=== PATIENT | female | born 1945 | race Caucasian/White ===

== ENCOUNTER 2020-07-30 16:08 | Inpatient (IN) | payer OTHER ==
[~2020-07-30] VITALS: Ht 157.5 cm; Wt 83.7 kg
--- NOTE | 2020-07-30 18:02 | NUR ---
PATIENT ADMITTING THIS DATE FROM [facility]. PATIENT WITH NEGATIVE COVID TESTING ON 07/29/20 AND 07/30/20 AFTER A POSITIVE TEST ON 07/27/20. DISCUSSED PATIENT ADMISSION TO REHAB UNIT WITH INFECTION CONTROL NURSE WHO APPROVED ADMISSION TO AFTER CLEARANCE OF DR. CAROLINA.
[2020-07-30 20:10] VITALS: BP 136/61
--- NOTE | 2020-07-31 01:43 | NUR ---
PT WAS DIRECTLY ADMITTED TO THIS UNIT REHAB (5N) ROOM 510 FROM [facility] AT APPROXIMATELY 1940. REPORT WAS TAKEN FROM NURSE DHAVAL. PT IS A&OX4. IS ON ROOM AIR. IS STABLE. CURRENTLY REPORTS PAIN IN THE LLE THAT IS BEING MANAGED WITH PAIN MEDS & OTHER THERAPEUTIC TECHNIQUES. PT DENIES PAIN IN R ANKLE. CAST INTACT & EXTREMITY ELEVATED. PT IS ABLE TO WIGGLE TOES. CAP REFILL <3 SEC. COLOR APPROPRIATE FOR ETHNICITY. NON WT BEARING ON THE RIGHT SIDE FOR 6 WEEKS. IS UP WITH MAX ASSIST X2, GB STAND PIVOT TO BSC & CHAIR. FALL PRECAUTIONS IMPLEMENTED. NO SKIN ISSUES NOTED. PT IS ABLE TO TURN SELF IN BED. PT WAS OREIENTED TO UNIT, ROOM, & CALL LIGHT SYSTEM. WELCOME PACKET GIVEN. CONSULTS CALLED. PT IS CURRENTLY ASLEEP IN BED. CALL LIGHT WITHIN REACH. PT IS CONTINENT & VOIDS PER BEDPAN FOR TONIGHT. DISCUSSED CONSENT FORMS WITH PT. PT STATED, "WOULD LIKE TO REST TONIGHT. I HAVEN'T GOTTEN MUCH SLEEP". PT TO SIGN ALL CONSENT FORMS IN AM INCLUDING FALL AGREEMENT. PT CALLS APPROPRIATELY FOR ASSISTANCE. WILL CONTINUE TO MONITOR.
[2020-07-31 04:31] LABS: HEMATOCRIT 36.7 % (37.0-47.0); HEMOGLOBIN 12.5 gm/dL (12.0-15.0); MCH 30.9 pg (26.0-34.0); MCHC 33.9 g/dL (28.0-37.0); MCV 91.1 fL (80.0-100.0); RBC 4.03 mil/uL (4.20-5.00); RDW 12.6 % (10.5-14.5); WBC 8.1 thou/uL (4.0-11.0)
[2020-07-31 04:56] LABS: ALBUMIN 2.8 g/dL (3.4-5.0); CALCIUM 8.4 mg/dL (8.5-10.1); CREATININE 0.6 mg/dL (0.6-1.0); POTASSIUM 3.4 mmol/L (3.5-5.1); TOTAL BILIRUBIN 1.6 mg/dL (0.2-1.0); TOTAL PROTEIN 6.3 g/dL (6.4-8.2)
[2020-07-31 05:15] LABS: FOLIC ACID 19.8 ng/mL (8.6-58.9)
[2020-07-31 07:15] VITALS: BP 165/77
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
--- NOTE | 2020-07-31 11:47 | NUR ---
cm tried to visit ronak in her room, unable to rt she working with ot.
[2020-07-31 20:00] VITALS: BP 154/77
[2020-08-01 00:06] LABS: GLYCOHEMOGLOBIN (HGB A1C) 9.4 % (4.8-5.6)
--- NOTE | 2020-08-01 02:48 | NUR ---
PT CARE ASSUMED WITH PT IN BED WITH FAMILY MEMBERS AT THE BEDSIDE.PT IS A/O X4.PT WANTED TO KNOW THE MEDICATIONS SHE IS TAKING.MEDS REVIEWD WITH FAMILY AND PT.PT IS ACCUCHECK ACHS WITH NO SSI.PT IS UP WITH X1 ASSIST.PT HAS A CAST ON THE RT FOOT.PT TAKES MEDS WHOLE WITH NO ISSUES.DTR WANTS TO KNOW RESULTS OF LABS TOMORROW.WILL ENDORSE TO DAY SHIFT TO CALL.WILL CONTINUE TO MONITOR
[2020-08-01 08:13] VITALS: BP 148/79
[2020-08-01 19:20] VITALS: BP 132/76
--- NOTE | 2020-08-01 19:48 | NUR ---
ASSUMED CARE AT 0700. A&OX4. REPORTS R ANKLE PAIN, RATED 7/10. PAIN MANAGED WITH PRN OXYCODONE. PATIENT CONTINUES TO BE NON-WEIGHT BEARING ON RLE, AND IS AN ASSIST OF 1 WITH GAITBEL AND WALKER USING WEIGHTBEARING LIMB FOR TRANSFERS AND AMBULATION. PATIENT C/O OF MUSCLE SPASM OVERNIGHT, AND PROVIDER ORDERED FOR MUSCLE RELAXER TO BE ADMINISTERED AT HS. PATIENT FAMILY CAME TO VISIT DURING DINNER. NON CONCERNS AT THIS TIME, WILL CONTINUE TO MONITOR.
--- NOTE | 2020-08-02 04:02 | NUR ---
assumed pt care at change of shift, asessments as charted, meds given as per may, pain medicine givenx1 for anle pain with relief, no acute distress noted, up to the commodex2, adequate clear ellen urine, denies dysuria, will continue to monitor and follow poc
[2020-08-02 05:44] LABS: CALCIUM 8.7 mg/dL (8.5-10.1); CREATININE 0.6 mg/dL (0.6-1.0); POTASSIUM 3.9 mmol/L (3.5-5.1)
[2020-08-02 08:00] VITALS: BP 141/73
--- NOTE | 2020-08-02 19:23 | NUR ---
ASSUMED CARE AT 0700. PATIENT IS A&OX4. REPORTS ACHING PAIN IN RIGHT ANKLE, MANAGED WITH PRN OXYCODONE. DIET ORDER HAS BEEN CHANGED TO CARB CONTROL, PER PROVIDER ORDER TO HELP MANAGE BG LEVELS. PT'S DAUGHTER CAME TO VISIT PATIENT AND WAS WONDERING IF HGBA1C LEVEL COULD BE TESTED ON HER MOTHER, BECAUSE SHE IS WONDERING IF HER MOTHER REQUIRES A DIABETES DIAGNOSIS. ONCOMING SHIFT HAS BEEN NOTIFIED TO PASS-ON TO FOLLOWING DAY SHIFT TO NOTIFY PROVIDERS ON THURSDAY 08/03. ASSIST OF 1 WITH GAITBELT AND WALKER W/ TRANSFERS AND AMBULATION. REMAINS NWB ON RLE. NO CONCERNS AT THIS TIME, WILL CONTINUE TO MONITOR.
[2020-08-02 20:18] VITALS: BP 140/69
--- NOTE | 2020-08-03 03:18 | NUR ---
PT TRANFERRING TO BEDSIDE COMMODE WITH GAIT BELT, WALKER AND ASSIST X1 AND IS TOLERATING FAIR. PERCOCET PROVIDING PAIN RELIEF. RESTING COMFORTABLY. NO NEEDS VOICED. CALL LIGHT WITHIN REACH. FREQUENT OBSERVATION.
[2020-08-03 08:00] VITALS: BP 150/71
--- NOTE | 2020-08-03 15:54 | NUR ---
Received awake on bed. Due medications given as prescribed, able to swallow meds w/o difficulty. On room air. Vital signs stable. On MS, not on telemetry; no complains and signs of chest pain, crushing sensation and heaviness. Assisted in ADLs. On carb controlled diet- tolerating well; no nausea, no vomiting and no abdominal pain noted. On blood sugar monitoring 2x/day- increased to ACHS as per BLOW OFF WORKER Ledy; with noted elevated blood sugar readings over the weekend. No IV noted. Continent of bowel and bladder, able to use bedside commode with moderate assist, gait belt and walker. Pt informed and aware re: non wt bearing status of R LE; s/p ORIF 07/28, dressing C/D/I. Complained of pain this AM, due PRN PO pain meds given as prescribed. To continue monitoring patient.
[2020-08-03 19:48] VITALS: BP 124/64
--- NOTE | 2020-08-04 02:39 | NUR ---
ASSUMED PT CARE AT 1900.PT WAS OSERVED SITTING UP BY HER BEDSIDE AT SHIFT CHANGE. PT UP WITH ASSIST/GB AND WALKER TO [facility]G CAST IN PLACE C/D/I.NON WT BEREAING TO HER R LEG.MEDS WHOLE IN THIN LIQUIDS.BG MONITORED WAS 183 AT HS.PT ABLE TO MAKE HER NEEDS KNOWN.CALL LIGHT WITHIN REACH.
[2020-08-04 08:19] VITALS: BP 128/69
--- NOTE | 2020-08-04 14:23 | NUR ---
team meeting recommendation: leslie, mario use knee scooter, she will need a wheel chair. will need assist with pills and bills. dc , 1 step, might want to have family look into ramp for at home.
[2020-08-04 19:22] VITALS: BP 142/76
--- NOTE | 2020-08-04 19:38 | NUR ---
ASSUMED CARE AT 0700. PATIENT IS A&OX4. NO C/O PAIN DURING THIS SHIFT. EDUCATION ON DIABETIC MEDICATION PROVIDED, SINCE PATIENT STARTED ON GLIPIZIDE TODAY.MEDICATION AND INSULIN ADMINISTERED ORDERED. CONTINUES TO BE NWB ON RLE, ASSIST OF 1 WITH MODERATE ASSIST USING GAITBELT AND WALKER FOR TRANSFERS. NO COCNERNS AT THIS TIME WILL CONTINUE TO MONITOR.
--- NOTE | 2020-08-05 01:49 | NUR ---
UP TO BSC WITH 1P ASSIST AND GAIT BELT FOR VOID AND BM. MAINTAINS NWB, PAIN AT HS, PAIN TOOK A WHILE TO GET UNDER CONTROL WITH PERCOCET TAKEN WITH SCHEDULED SOMA, MIGHT HAVE WORKED BETTER TO TAKE AN HOUR EARLIER. EXTRA BLANKETS NEEDED BECAUSE ROOM FEELS COLD TO HER WITH THERMOSTAT HIGH IT WILL GO. COLACE BUT NOT MIRALAX TONIGHT DUE TO SECOND BM TODAY, IT TOOK A WHILE TO FINALIZE DECISION.
--- NOTE | 2020-08-05 03:56 | NUR ---
MAINTAINING NWB RLE, PATIENT IS USING WC, GAIT BELT, AND 1P ASSIST USING GRAB BARS TO GET ON TOILET FOR VOIDS AND BM. TOOK A WHILE TO GET PAIN UNDER CONTROL TAKING PERCOCET WITH SCHEDULED SOMA, MIGHT HAVE WORKED BETTER IF TAKEN AN HOUR EARLIER. FOOT ELEVATED, ICE BAGS ARE NOT AN OPTION SHE FEELS COLD EVEN WITH EXTRA BLANKET AND THERMOSTAT TURNED UP. AFTER SECOND BM SHE HESITATED TO, BUT DECLINED MIRALAX, DID TAKE COLACE.
[2020-08-05 08:54] VITALS: BP 120/63
--- NOTE | 2020-08-05 13:43 | NUR ---
spoke with daughter fanta snow via phone call, agrees with dcp. they working on ramp at home should be done by monday. uncle going to bring her wheel chair. want to rent hospital bed, " ok that [facility] call on that information and i will assist her with medication and bills"/daughter fanta weaver. will cont following as needed for dc needs. cm left senior blue book and hh list choice with her.
[2020-08-05 19:19] VITALS: BP 127/72
--- NOTE | 2020-08-06 01:15 | NUR ---
PT ASSESSMENT COMPLETED AND VSS. MEDS GIVEN ORDERED AND WELL TOLERATED. FALL PRECAUTIONS IN PLACE. UP TO THE BATHROOM WITH ASST/GAIT/WHEELCHAIR. LOOSE STOOLS THIS EVENING. IMMODIUM HELPFUL. PRN PAIN MEDICATION WORKING WELL. DSG INTACT. SLEEPING WELL. WILL CONTINUE TO MONITOR FREQUENTLY.
[2020-08-06 19:10] VITALS: BP 141/75
--- NOTE | 2020-08-06 19:43 | NUR ---
ASSUMED CARE AT 0700. A&OX4. REPORTS R ANKLE PAIN, PAIN MANAGED WITH PRN OXYCODONE AND REST. MEDICATION AND INSULIN ADMINISTERED ORDERED. CONTINUES TO BE NON-WEIGHT BEARING ON RLE. CONTACT GUARD ASSIST WITH TRASNFERS. ABLE TO MAKE NEEDS KNOWN. NO CONCERNS AT THIS TIME, WILL CONTINUE TO MONITOR.
--- NOTE | 2020-08-06 22:06 | NUR ---
ASSUMED CARE OF PT AT 1920. PT IS A&OX4. IS STABLE. ON ROOM AIR. REPORTS PAIN IN RIGHT FOOT THAT IS BEING MANAGED WITH PAIN MEDS & OTHER THERAPUTIC TECHNIQUES. CAST IN PLACE. IS ABLE TO WIGGLE TOES. CAP REFILL LESS THAN 3 SEC. EDEMA & REDNESS NOTED. ELEVATED ON PILLOW. PT IS UP WITH 1 ASSIST, GB, WALKER STAND PIVOT & IS NON WEIGHT BEARING. FALL PRECAUTIONS & HOURLY ROUNDING CONTINUED THIS SHIFT. LABS & VITALS REVIEWED. CALL LIGHT WITHIN REACH. WILL CONTINUE TO MONITOR.
[2020-08-07 05:44] LABS: ABSOLUTE NEUTROPHILS 4.2 thou/uL (1.4-8.2); BASOPHILS 0.7 % (0.0-2.0); EOSINOPHILS 2.8 % (0.0-3.0); HEMATOCRIT 37.1 % (37.0-47.0); HEMOGLOBIN 12.4 gm/dL (12.0-15.0); LYMPHOCYTES 31.2 % (24.0-44.0); MCH 30.7 pg (26.0-34.0); MCHC 33.6 g/dL (28.0-37.0); MCV 91.3 fL (80.0-100.0); PLATELET COUNT 276 thou/uL (150-400); POLYS 58.3 % (36.0-66.0); RBC 4.06 mil/uL (4.20-5.00); RDW 13.1 % (10.5-14.5); WBC 7.2 thou/uL (4.0-11.0)
[2020-08-07 06:06] LABS: CALCIUM 9.1 mg/dL (8.5-10.1); CREATININE 0.6 mg/dL (0.6-1.0); MAGNESIUM 1.9 mg/dL (1.8-2.4); POTASSIUM 4.5 mmol/L (3.5-5.1)
[2020-08-07 08:00] VITALS: BP 108/65
--- NOTE | 2020-08-07 15:15 | NUR ---
Nutrition: pt admitted to rehab unit with right ankle fracture. Seen due to weekend LOS. Stable weights and good appetite reported, 75-100% of meals. New dx DM, A1C 9.4. BG 132-164. RD initiated diet review and gave materials to pt. Will followup next week prior to D/C for more comprehensive review of diet. Consider low nutrition risk.
--- NOTE | 2020-08-07 17:00 | PLAN ---
[facility] [place] [address] REHAB UNIT PLAN OF CARE Name: DIONICIO HALL Room #: 501-A ADM IN M.R.#: [id number] Admission: 07/30/20 Attend Phys: Alfredo Krishnamurthy MD Discharge: Date of : 49 Report #: [id number] THIS REPORT FOR: cc: CHENG - No family physician/PCP CHENG - No family physician/PCP Alfredo Krishnamurthy MD ~ DOC #: [id number] Alfredo Krishnamurthy MD DATE OF SERVICE: 08/01/2020 PROGRESS NOTE AND OVERALL PLAN OF CARE PLAN OF CARE: The patient was seen in rehabilitation medicine followup. She was in no distress. Temperature 36.7, pulse 70, respirations 17, and blood pressure 148/79. She has the splint involving the right foot, which appears to be neurovascularly intact. She is very talkative and somewhat tangential in her speech, but is pleasant, cooperative. She has been working in therapies with transfers at a max assist level and gait mod assist to 5 feet with a front-wheeled walker. Dressing upper body is set up with lower body mod assist. In speech, she does have moderate cognitive deficits, moderate memory deficits, [id number] comprehension deficits. She is limited to nonweightbearing right lower extremity. ASSESSMENT: 1. Right bimalleolar fracture status post open reduction internal fixation on 07/28/2020 nonweightbearing x6 weeks. 2. Peripheral neuropathy. 3. Vitamin B12 deficiency. 4. Vitamin D deficiency. 5. Probable type 2 diabetes mellitus. 6. Constipation. 7. Obesity. PLAN: The overall plan of care is based on the pre-admit screen and information garnered from therapy assessments. 1. Estimated length of stay is probably 14 days. 2. Medical prognosis reasonably good. 3. Anticipated interventions includes the interdisciplinary acute inpatient rehabilitation program. 4. Anticipated functional outcomes would be for the patient to become modified independent with basic mobility and ADLs probably at a walker versus wheelchair level. Also to improve as far as cognition. 5. Discharge destination will be back to the home setting with her daughter and son-in-law. They are noted to be installing a ramp. 6. Expected therapy by discipline includes PT, OT and speech 1 hour per day each five days a week throughout the duration of the acute inpatient rehabilitation stay. ADDENDUM: The patient's prognosis for significant practical improvement within [facility] [address] [place] [address] REHAB UNIT PLAN OF CARE Name: DIONICIO HALL Room #: 501-A [facility] IN [facility]#: [id number] Admission: 07/30/20 Attend Phys: Alfredo Krishnamurthy MD Discharge: Date of : 49 Report #: [id number] a reasonable period of time appears good. Given the patient's complex medical condition and risk of further medical complications, rehabilitation services could not be safely provided at a lower level of care such as a [facility] facility. Alfredo Krishnamurthy MD DGS :29 PM <ELECTRONICALLY SIGNED> By: Alfredo Krishnamurthy MD 08/07/20 1700 [id number] Alfredo Krishnamurthy MD /nt
[2020-08-07 20:00] VITALS: BP 129/71
--- NOTE | 2020-08-08 04:22 | NUR ---
assumed care approx 1900 evening 08/07. pt sitting up in w/c with right leg elevated at change of shift. pt alert and oriented x4, calm and cooperative. pt pleasant and cooperative. pt took hs meds with water tolerating well. pt appears to be sleeping soundly. bed alarm on and call light in reach. will continue to monitor.
[2020-08-08 07:01] VITALS: BP 143/65
--- NOTE | 2020-08-08 10:23 | NUR ---
ASSUMED CARE AT 0700. PATIENT IS ALERT AND ORINETED X4. PATIENT CAR'S, FINANCIAL REPORTING CONSULTANT ARE EQUAL. LUNGS ARE DEMINISHED. ABD IS SOFT WITH BSX4. UP TO THE BATHROOM WITH ASSIST OF 1 AND GAIT BELT TO VOID AND HAVE BM. RIGHT ANKLE SPLINT INTACT. PATIENT IS NON WT BEARING ON THE RIGHT ANKLE. UP IN W/C FOR MEALS. FALL AND SAFETY PROTOCOLS IN PLACE. C/O PAIN IN HER RIGHT ANKLE. MEDICATED WITH PRN PAIN MED. CONTINUES TO PROGRESS SLOWLY TOWARDS D/C GOALS. WILL CONTINUE TO MONITER.
[2020-08-08 19:20] VITALS: BP 133/71
[2020-08-09 19:09] VITALS: BP 150/83
--- NOTE | 2020-08-09 19:33 | NUR ---
ASSUMED CARE AT 0700. PATIENT IS A&OX4. NO C/O PAIN. BS PRESENT AND ACTIVE. MEDICATION AND INSULIN ADMNISTERED ORDERED. CONTINUES TO BE NON-WEIGHTBEARING ON RLE. SPLINT WRAPPED IN KERLIX IN PLACE ON RLE. ASSIT OF 1 WITH TRANSFERS USING WALKER AND GAITBELT. USES WHEELCHAIR MODE OF TRANSPORT. BLE KEPT ELEVATED, LOWER EXTREMITY EDEMA NOTED. NO CONCERS AT THIS TIME WILL CONTINUE TO MONITOR.
--- NOTE | 2020-08-09 22:56 | NUR ---
ASSUMED CARE OF PT AT 1915. A&OX4. IS ON ROOM AIR. IS STABLE. DENIES PAIN IN RIGHT FOOT. PARTIAL CAST IN PLACE. PT IS UP WITH 1 ASSIST, GB, WALKER. IS NON WT BEARING. EXTREMITY ELEVATED. EDEMA NOTED IN BILAT LES. PT IS ABLE TO WIGGLE TOES. CAP REFILL <3 SEC. COLOR APPROPRIATE. FALL PRECUATIONS & HOURLY ROUNDING CONTINUED THIS SHIFT. LABS & VITALS REVIEWED. PT IS CURRENTLY ASLEEP. CALL LIGHT WITHIN REACH. IS ABLE TO TURN SELF IN BED. WILL CONTINUE TO MONITOR.
[2020-08-10 07:15] VITALS: BP 135/74
--- NOTE | 2020-08-10 10:59 | NUR ---
ORTHOPEDIC APPOINTMENT WITH JOSE MIGUEL CLAUDIO SCHEDULED FOR 08/18/20 AT 1300, AT THE [facility] ([address] [place] [address]. , [id number]). PATIENT WILL RECEIVE A REMINDER CALL ABOUT APPOINTMENT.
--- NOTE | 2020-08-10 14:07 | NUR ---
cm delivered rx for wheel chair to [facility].
--- NOTE | 2020-08-10 16:45 | NUR ---
ASSUMED CARE AT 0700. PATIENT IS A&OX4. ABLE TO MAKE NEEDS KNOWN. ASSISST OF 1 USING GAITBELT AND WALKER TO TRANSFER TO TOILET. MEDICATION AND INSULIN ADMINISTERED ORDERED. REMAINS NWB ON RLE, SPLINTS RWPPED IN KERLIX IN PLACE AND INTACT. NO C/O PAIN. STOOL SOFTNER AND LAXITIVE WERE HELD THIS MORNING DUE TO REPORTS OF DIARREAH OVERNIGHT. NO CONCERNS AT THIS TIME, WILL CONTIUE TO MONITOR.
[2020-08-10 20:00] VITALS: BP 139/80
--- NOTE | 2020-08-11 04:48 | NUR ---
ASSESSMENT: PT REMAIN ALERT AND ORIENT TIMES THREE, FORGETFUL AT TIMES. VSS, AFEBRILE. SBA WITH GB AND WALKER TO BR. C/O RIGHT ANKLE PAIN, PRN PAIN MEDS GIVEN WITH GOOD RELIEF. SLOW PROGRESS TOWARDS DC GOALS. WILL CONTINUE TO MONITOR.
[2020-08-11 08:24] VITALS: BP 120/66
--- NOTE | 2020-08-11 09:34 | NUR ---
ADM TUMS TAB FOR UPSET STOMACH. PT STATING SHE IS HAVING ALOT OF GAS.
--- NOTE | 2020-08-11 09:54 | NUR ---
ASSISTED PT TO BATHROOM. PT ABLE TO WHEEL SELF IN BATHROOM AND GET UP TO TOILET. PT HAD BM THAT WAS SOFT. PT STATED SHE HAS SOME GURGALING TO STOMACH AND WANTED A TUMS. PT LUNGS CLEAR. PT DENIED ANY PAIN AT THIS TIME TO RT ANKLE. RT LOWER EXT IS WRAPPED IN KERLEX AND SECURED WITH TAPE. PT TOOK MEDS WITH THIN WATER.
--- NOTE | 2020-08-11 11:54 | NUR ---
ADM LOMOIL 2MG PO FOR COMPLAINTS OF SOFT STOOL X2 THIS AM.
--- NOTE | 2020-08-11 13:00 | NUR ---
team meeting, assist with medication and bills. dc on home with hh, wheel chair from [facility]. ortho follow up on . hh ( pt, ot, st, nursing). will cont following as needed for dc needs.
--- NOTE | 2020-08-11 14:16 | NUR ---
ADM OXYCODONE 5MG PO FOR PAIN TO RT ANKLE OF 6. PT TAKES MEDS ONE AT A TIME.
--- NOTE | 2020-08-11 17:29 | NUR ---
ADM TUMS FOR COMPLAINTS OF UPSET STOMACH PT ASKING FOR LOMOTIL.
--- NOTE | 2020-08-11 17:32 | NUR ---
ADM LOMOTIL 2MG PO FOR COMPLAINING OF UPSET STOMACH. PT STATED SHE DID HAVE ANOTHER STOOL.
[2020-08-11 19:39] VITALS: BP 116/66
--- NOTE | 2020-08-12 00:07 | NUR ---
ALERT AND ORIENTED X 4. UP IN W/C ALL EVENING. TRANSFERRED TO BED AT WITH ASSIST X 1. NWB RIGHT LE. SPLINT INTACT TO RLE. PT DENIES PAIN OR DISCOMFORT. BED ALARM ON FOR SAFETY. PT APPEARS TO BE SLEEPING ON HOURLY ROUNDS.
--- NOTE | 2020-08-12 08:33 | NUR ---
PT SITTING UP IN WHEEL CHAIR THIS AM. PT STATED SHE HAS SOME PAIN TO RT ANKLE OF 5 ON 1-10 SCALE. PT STATED HER GOAL WAS TO WORK WITH THERAPY. PT LUNGS CLEAR. PT HAD BM YESTERDAY.
--- NOTE | 2020-08-12 09:47 | NUR ---
spoke with daughter fanta jo via phone call, confirmed that she does not have pcp, any hh will be fine, ok with [facility] ( pt, ot, st,nurse). can try to see if dr cherri paul in [place] is taking new pt, she never goes to the "/fanta snow. referral to be sent to [facility], hospitalist will follow for home hh until see pcp.
--- NOTE | 2020-08-12 17:43 | NUR ---
ADM OXYCODONE 5MG PO FOR PAIN OF 8 TO RT ANKLE. PT STATED THAT ITS COLD IN ROOM AND SHE SAID PAIN IS STARTING. PT HAS LEG OFF FOOT OF W/C. WILL PLACE LEG BACK UP AND ELEVATE IT.
[2020-08-12 19:12] VITALS: BP 132/66
--- NOTE | 2020-08-13 02:04 | NUR ---
PT CARE ASSUMED WITH PT SITTING IN THE CHAIR .PT IS A/O X4.PT IS UP WITH X1 ASSIST AND NON WEIGHT BEARING ON RT FOOT WITH CAST IN PLACE.PT DENIED DOCUSATE THAT IT CAUSE HER TO HAVE DIARRHEA..PT APPEARED TO BE IN NO ACUTE DISTRESS.WILL CONTINUE TO MONITOR PER POC
[2020-08-13 07:30] VITALS: BP 135/54
--- NOTE | 2020-08-13 12:15 | NUR ---
Nutrition followup: pt eating 50-100% of meals. BG 112-146. Expected D/C 08/14. Diabetic education provided, see education log for details.
--- NOTE | 2020-08-13 14:29 | NUR ---
PT DAUGHTER CALLED THIS AM AND REQUESTED FOR HOSPITAL BED AND BED RAIL ORDER TO BE FAXED TO FAX NUMBER [phone]. THE PRESCRIPTION FRON GRIZZLYMAN INCLUDING THE DIAGNOSISES, THE PT'S FACE SHEET AND PROGRESS NOTE HAS BEEN SENT OVER TO THIS FAX NUMBER. DAUGHTER ELENITA HENNESSY HAS BEEN UPDATED.
[2020-08-13 19:00] VITALS: BP 124/71
--- NOTE | 2020-08-13 19:43 | NUR ---
ASSUMED CARE AT 0700. PATIENT IS A&OX4. REPORTED PAIN IN RIGHT ANKLE, PAIN MANAGED WITH PRN PERCOCET. MEDICATION ADMNISTERED ORDERED. BG LEVELS THROUGHOUT HAS NOT INDICATED FOR INSULIN. CONTINUES TO BE NWB ON RLE. ASSIT OF 1 WITH TRANSFERS. PATIENT REFUSED STOOL SOFTNER IN AM, HAD 1 LARGE BM DURING SHIFT. NO CONCNCERS AT THIS TIME WILL CONTINUE TO MONITOR.
--- NOTE | 2020-08-13 19:46 | NUR ---
ASSUMED CARE OF PT AT 1900. PT IS A&OX4. IS ON ROOM AIR. IS STABLE. REPORTS PAIN 8/10 IN RIGHT FOOT. PT HAS BEEN ADMINISTERED PAIN MEDS & STATED, "THE PAIN IS COMING DOWN". OTHER THERAPUETIC TECHNIQUES PROVIDED. PARTIAL SPLINT & WRAP IN PLACE. PT IS UP WITH TOUCH ASSIST, GB, WALKER. IS NON WEIGHT BEARING ON THE RIGHT. FALL PRECAUTIONS & HOURLY ROUNDING CONTINUED THIS SHIFT. LABS & VITALS REVIEWED. CALL LIGHT WITHIN REACH. WILL CONTINUE TO MONITOR.
[2020-08-14 08:13] VITALS: BP 124/71
[2020-08-14 09:16] VITALS: BP 124/71
--- NOTE | 2020-08-14 11:47 | NUR ---
ASSUMED CARE OF THIS PATIENT AT SHIFT CHANGE. ASSESSMENT CHARTED. MEDICATIONS ADMINISTERED PER EMAR. VSS. PATIENT IS A&OX4; PAIMIUT AND MAKES NEEDS KNOWN. PATIENT TRANSFERS TO BATHROOM WITH GB/WALKER SBA/CONTACT GUARD AND DOING WELL. TOLERATING PO INTAKE WELL W NO ISSUES. VOICES MILD PAIN RELIEVED BY SCHEDULED MEDS; (CONSULT MAY). PATIENT CLEARED FOR FOR DISCHARGED THIS DAY AND WILL BE PICKED UP BY SON THIS DAY AT APPROX 1345. SON CALLED AND REMINDED; DISCHARGE INSTRUCTIONS TO BE SENT WITH PATIENT ALONG WITH PRINTED SCRIPTS. CONTINUING FREQUENT MONITORING ON THIS PATIENT UNTIL DISCHARGE; FALL PRECAUTIONS REMAIN IN PLACE.
--- NOTE | 2020-08-14 12:01 | NUR ---
ASSUMED CARE OF PATIENT AT SHIFT CHNAGE. ASSESSMENT CHARTED. MEDS ADMINISTERED PER MAY. VSS. PATIENT IS A&OX4 AND MAKES NEEDS KNOWN. PATIENT HAS BEEN CALLING OUT FOR HELP AND AMBULATES/TRANSFER SBA/CONTACT GUARD WITH NO ISSUES. PATIENT IS VOICING PAIN RELIEVED BY PRN PAIN ANALGESIC. CONCERN ABOUT DISCHARGE TODAY ONLY REGARDING PAIN CONTROL OUTSIDE OF HOSPITAL. CM ASSISTING WITH PATIENT TRANSPORTATION FOR DISCHARGE THIS DAY. NO FURTHER ISSUES VOICED. FALL PRECAUTIONS AND FREQUENT MONITORING ACTIVELY IN PLACE. WILL CONTINUE TO MONITOR UNTIL DISCHARGE.
--- NOTE | 2020-08-14 12:03 | NUR ---
[employer] transportation set up for dc home today with [facility] ( pt, ot, st, and nursing). wheel chair from [facility] here? and transportation will pick her up between 1300 and 1330.
[2020-08-14] MEDS ORDERED: FOLIC ACID1 MG PO (12:52)
[2020-08-14] MEDS ORDERED: GLUCOPHAGE1000 MG PO (12:52)
[2020-08-14] MEDS ORDERED: LOPERAMIDE 2 MG2 M1 PO (12:52)
[2020-08-14] MEDS ORDERED: B-12500 MCG PO (12:52)
[2020-08-14] MEDS ORDERED: UNICOMPLEX M TA1 TA1 PO (12:52)
[2020-08-14] MEDS ORDERED: CALTRATE-600 W1 EACH PO (12:52)
[2020-08-14] MEDS ORDERED: PERCOCET PO (12:52)
[2020-08-14] MEDS ORDERED: GLIPIZIDE ER2.5 MG PO (12:52)
[2020-08-14] MEDS ORDERED: VITAMIN D325 MC1 PO (12:52)
[2020-08-14] MEDS ORDERED: ACETAMINOPHEN325 M1 PO (12:52)
[2020-08-14] MEDS ORDERED: COLACE 100 MG100 MG PO (12:52)
--- NOTE | 2020-08-14 15:42 | HC ---
[facility] [place] [address] CONSULTATION Name: DIONICIO HALL Room #: 501-A [facility] IN M.R.#: [id number] Admission: 07/30/20 Attend Phys: Alfredo Krishnamurthy MD Discharge: 08/14/20 Date of : 49 Report #: [id number] THIS REPORT FOR: cc: CHENG Barba family physician/PCP CHENG Barba family physician/PCP Shankar Mckeon PhD ~ DOC #: [id number] Shankar Mckeon, PhD DATE OF SERVICE: 08/08/2020 NEUROBEHAVIORAL STATUS EXAMINATION ATTENDING PHYSICIAN: Alfredo Krishnamurthy M.D. ORTHOTICS PROSTHETICS TECHNICIAN: Shankar Mckeon, PhD CLINICAL PRESENTATION: The patient is a 75-year-old female admitted to the hospital following a fall at her home, in which she was found to have a severe bimalleolar fracture with ankle dislocation. The patient underwent an ORIF on 07/28/2020. She is nonweightbearing for 6 weeks due to an unstable fracture. Prior to this more recent event, she was living at home independently with her daughter and son-in-law. Her assessment on admission to the rehabilitation unit included right bimalleolar fracture, status post ORIF on 07/28/2020, nonweightbearing for 6 weeks, peripheral neuropathy, B12 deficiency, vitamin D deficiency, probable type 2 diabetes mellitus and constipation. A description of her medical condition and history can be found in her medical record. Neuropsychological consultation was requested to provide assistance in the assessment of cognitive and emotional status and provide recommendations and services. As indicated, she was living with her daughter and son-in-law prior to this recent event. Her about 5 years ago. Her daughter has a disability and has been diagnosed with lupus. The patient had discontinued driving for several years. She is independent with basic and instrumental activities of daily living. The patient had 6 children. Her family is supportive. She is a high school graduate. 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 TECHNIQUES UTILIZED: Clinical interview, review of medical records, staff consultation, behavioral observation, mini-mental status exam 2 standard version and clock drawing. EXAMINATION FINDINGS: The patient was alert and cooperative with the assessment. There is no evidence of aphasia. She does not report auditory or visual hallucinations. There is no suicidal ideation or thought [facility] [address] [place] [address] CONSULTATION Name: DIONICIO HALL Room #: 501-A [facility] IN M.R.#: [id number] Admission: 07/30/20 Attend Phys: Alfredo Krishnamurthy MD Discharge: 08/14/20 Date of : 49 Report #: [id number] disorder. She describes her symptoms to include sleep disorder, anxiety and depression. She was tearful at describing the loss of her . Within normal limits are appetite, energy level, memory and word finding. Pain in her leg and foot are reported to be keeping her awake at night. Appetite is within normal limits, although somewhat inconsistent. Mild deficits are suggested on the brief version of the MMSE 2 with a raw score of 13 and 16. She was 3/3 for initial registration, 5/5 orientation to time and 4/[address]. She was 1/3 for immediate recall of 3 items after a brief time delay and distraction. Performance on the MMSE 2 standard version was 25-30. She was 3/5 for serial sevens, 2/2 for naming, 1/1 for repetition, 3/3 for comprehension. She could read and follow a single command and write a sentence. She was also able to copy a simple geometric design. Clock drawing is within normal limits. The patient is presenting with mild deficits in cognition. Immediate recall and sustain concentration are likely to require increasing compensation. Her mood is generally optimistic with a mild degree of depression surrounding the loss of her . DIAGNOSTIC IMPRESSION: Mild neurocognitive disorder, unspecified, without behavior disorder. Unspecified depressive disorder. RECOMMENDATIONS: The patient will likely require increased assistance in the management of medication, finances and nutrition until she settles down to a more normal routine upon her discharge. Consider treatment for depression with the use of antidepressant and counseling services following discharge. Use of verbal praise and complements about participation in therapies along with the support regarding her recovery will also help her overall adjustment. Emphasizing her strengths in areas that can assist her in compensation for deficits will also improve mood. Thank you very much for allowing me to provide the consultation on this patient. Shankar Mckeon, PhD [address] [address] CONSULTATION Name: DIONICIO HALL Room #: 501-A [facility] IN M.R.#: [id number] Admission: 07/30/20 Attend Phys: Alfredo Krishnamurthy MD Discharge: 08/14/20 Date of : 49 Report #: [id number] <ELECTRONICALLY SIGNED> By: Shankar Mckeon, PhD 08/14/20 [id number] Shankar Mckeon, PhD /
== END 2020-08-14 13:20 | disposition home health service (06) | DRG 563 ==
PROVIDERS: Internal Medicine; Nurse Practitioner; Nurse Practitioner Family; ADMIT Physical Medicine & Rehabilitation; ATTEND Physical Medicine & Rehabilitation
DX: S82.841A Displaced bimalleolar fracture of right lower leg, initial encounter for closed fracture (principal); E44.0 Moderate protein-calorie malnutrition; E55.9 Vitamin D deficiency, unspecified; K59.00 Constipation, unspecified; W18.39XA Other fall on same level, initial encounter; E11.42 Type 2 diabetes mellitus with diabetic polyneuropathy; E66.9 Obesity, unspecified; E53.8 Deficiency of other specified B group vitamins; F32.9 Major depressive disorder, single episode, unspecified; G31.84 Mild cognitive impairment of uncertain or unknown etiology; R26.89 Other abnormalities of gait and mobility; E87.6 Hypokalemia; M62.838 Other muscle spasm; Y93.89 Activity, other specified; Y92.89 Other specified places as the place of occurrence of the external cause; Y99.8 Other external cause status; Z68.33 Body mass index [BMI] 33.0-33.9, adult
CPT/HCPCS: 10112